=== PATIENT | male | born 1975 | race Caucasian/White ===

== ENCOUNTER 2019-03-12 21:07 | Inpatient (IN) | payer MEDICAID ==
[~2019-03-12] VITALS: Ht 165.1 cm; Wt 94.3 kg
[2019-03-12 21:20] VITALS: Ht 165.1 cm; Wt 94.3 kg
--- NOTE | 2019-03-12 21:47 | NUR ---
DR. LOPEZ AT BEDSIDE WITH MSE
--- NOTE | 2019-03-12 21:57 | NUR ---
LAB AND X RAY AT BEDSIDE
--- NOTE | 2019-03-12 22:03 | NUR ---
MEDICATED PER DR ORDER, PT. TOLERATED WELL, SEE EMAR
[2019-03-12 22:09] LABS: BASOPHIL % 0.4 % (0-2); PLATELET COUNT 210 x10^3mcL (130-400); RED CELL DISTRIBUTION WIDTH 14.3 % (11.5-14.5)
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
[2019-03-12 22:15] LABS: CALCIUM 8.8 mg/dL (8.5-10.1); CARBON DIOXIDE 27.2 mmol/L (21-32); CHLORIDE SERUM 105 mmol/L (98-107); GFR1 > 60 mL/min; GLUCOSE SERUM 126 mg/dL (74-106); POTASSIUM SERUM 4.3 mmol/L (3.5-5.1); SODIUM SERUM 140 mmol/L (136-145)
[2019-03-12 22:20] LABS: ALKALINE PHOSPHATASE 67 U/L (46-116); ALT/SGPT 36 U/L (16-63); AST/SGOT 30 U/L (15-37); BILIRUBIN TOTAL 0.7 mg/dL (0.20-1.00); TOTAL PROTEIN, SERUM 7.1 g/dL (6.4-8.2)
[2019-03-13] VITALS (9 sets, daily range): BP systolic 149–191; BP diastolic 88–116
[2019-03-13 00:17] LABS: microscopic required? YES; urine erythrocyte TRACE (NEGATIVE)
[2019-03-13] MEDS ORDERED: LABETALOL HCL100 MG PO (00:20)
[2019-03-13] MEDS ORDERED: ZESTRIL20 MG PO (00:21)
[2019-03-13] MEDS ORDERED: HYDRALAZINE HCL50 MG PO (00:22)
[2019-03-13] MEDS ORDERED: LIPITOR40 MG PO (00:23)
[2019-03-13 00:27] LABS: AMPHETAMINE QUAL UR NONE DETECTED (See below)
--- NOTE | 2019-03-13 00:27 | NUR ---
REPORT PABON TO EBONI RENTERIA RN REPORTED BP 166/106, OK TO SEND UP
--- NOTE | 2019-03-13 01:20 | NUR ---
RECEIVED PT FROM ER, PT ADMIT FOR CHEST PAIN, HYPERTENSIVE EMERGENCY, PT IS A/O X4, VERBAL RESPONSIVE. SLOW SPEECH, LUNG SOUND CLEAR BIALTERAL, C/O DRY COUGH, SOB. PIOR TO ER. PT IS ON 2L/MIN O2 VIA NC, PO2 97%, PT IS ON TELE 15, NSR, DENY ANY CHESET PAIN OR DISCOMFORT, BOWEL SOUND PRESENT ALL 4 QUADRANTS, NO DISTENTION, NO TENDER. PEDAL PULSE PRESENT BOTH FEET, NO EDEMA, ALL 4 EXTREMITIES ARE EQUAL STREIGHT. NO WEAKNESS NOTED. IV AT LEFT HAND, NO LEAKING, NO INFILTRATION. ALL ADLS ASSIST, ALL NEED MET, CALL LIGHT IN REACH, WILL CONTINUE TO MONITOR.
--- NOTE | 2019-03-13 01:45 | NUR ---
B/P READING SHOWS 191/116, MAP 138. CATAPRESS 0.1MG PO GIVEN ORDERED. PT DENIES PAIN OR ANY DISCOMFORT AT THIS TIME. SR ON THE MONITOR. RESP. EVEN AND UNLABORED. ON ROOM AIR, SAT. 99%. NO ACUTE DISTRESS NOTED. CALL LIGHT WITHIN REACH. WILL CONTINUE TO MONITOR.
[2019-03-13 02:41] LABS: CHOLESTEROL/HDL RATIO 3.9
--- NOTE | 2019-03-13 02:58 | NUR ---
B/P READING RECHECK SHOWS 156/95. MAP 118.02 SAT.SHOWS 98% ON ROOM AIR, NO ACUTE DISTRESS NOTED.
--- NOTE | 2019-03-13 03:02 | NUR ---
RESTING QUIETLY IN BED WITH EYES CLOSED, APPEARS ASLEEP, EASILY AROUSABLE. RESP. EVEN AND UNLABORED. NO ACUTE DISTRESS NOTED. WILL CONTINUE TO MONITOR.
--- NOTE | 2019-03-13 06:13 | NUR ---
AFEBRILE AND VITAL SIGNS STABLE.RESP. EVEN AND UNLABORED. SR ON THE MONITOR, DENIES CP OR ANY DISCOMFORT AT THIS TIME. SLEPT WELL. NO COMPLAINTS NOTED. VOIDING FREELY. AMBULATES TO THE BATHROOM WITH STEADY GAIT. WILL CONTINUE TO MONITOR.
[2019-03-13 06:55] LABS: BASOPHIL % 0.5 % (0-2); PLATELET COUNT 203 x10^3mcL (130-400); RED CELL DISTRIBUTION WIDTH 14.4 % (11.5-14.5)
[2019-03-13 07:15] LABS: CALCIUM 8.5 mg/dL (8.5-10.1); CARBON DIOXIDE 29.5 mmol/L (21-32); CHLORIDE SERUM 105 mmol/L (98-107); CREATININE SERUM 1.1 mg/dL (0.7-1.3); GFR1 > 60 mL/min; GLUCOSE SERUM 105 mg/dL (74-106); MAGNESIUM 1.9 mg/dL (1.8-2.4); PHOSPHOROUS 3.3 mg/dL (2.5-4.9); SODIUM SERUM 141 mmol/L (136-145)
--- NOTE | 2019-03-13 07:46 | NUR ---
AAO TIMES 4. TELE # 15 SR. LUNGS CTA. NO SOB. O2 SAT ON 1L NC 99%. BS'S ACTIVE TIMES 4. SPENCER STRONG. IV SITE CDI LEFT HAND. PERIPHERAL PULSES PALPABLE. NO EDEMA. NO C/O DISCOMFORT.
--- NOTE | 2019-03-13 15:11 | NUR ---
ECHOCARDIOGRAM COMPLETED.
--- NOTE | 2019-03-13 18:15 | NUR ---
AAO TIMES 4. TELE # 15 SR. NO C/O PAIN. NO SOB. COOPERTIVE. WATCHING TV ON HIS PHONE. IV SITE CDI. AMBULATORY.
--- NOTE | 2019-03-13 19:30 | NUR ---
PT IS A/O x4. SLOW, SOFT SPEECH. ON TELE #15, NSR. DENIES ANY CHEST PAIN OR PRESSURE. PULSES ARE PRESENT. NO EDEMA NOTED. LUNGS CLEAR IN ALL OLIVERSO. ON RA, DENIES ANY SOB. EQAUL CHEST RISE AND FALL. NO SIGN OF RESP DISTRESS. BOWEL SOUNDS ARE PRESENT x4. DENIES ANY ABD PAIN OR DISTRESS. SKIN WARM AND INTACT. DENIES ANY PAIN AT THIS TIME. SALINE LOCKED ON LH INTACT AND PATENT. BED IS AT LOWEST SETTING. CALL LIGHT WITHIN REACH. WILL CONTINUE TO MONTIOR.
--- NOTE | 2019-03-13 22:17 | NUR ---
B/P WAS RECHECKED AND INCREASED TO 170/72. CATAPRES WAS GIVEN PER EMAR. WILL RECHECK B/P.
--- NOTE | 2019-03-13 23:42 | NUR ---
RECHECKED B/P AFTER PRN CATAPRESS. B/P IS NOW 159/99. HR 97. PT DENIES ANY CHEST PAIN OR PRESSURE. CHARGE NURSE INFORMED. WILL CONTINUE TO MONITOR.
--- NOTE | 2019-03-14 00:33 | NUR ---
PT IS RESTING IN BED WITH BOTH EYES CLOSED. BREATHING EVEN AND UNLABORED. NO SIGN OF RESP DISTRESS. BED IS AT LOWEST SETTING. CALL LIGHT WITHIN REACH. WILL CONTINUE TO MONITOR.
[2019-03-14 05:04] VITALS: BP 155/87
--- NOTE | 2019-03-14 06:43 | NUR ---
PT IS RESTING IN BED. DENIES ANY CHEST PAIN OR PRESSURE. NO ACUTE EVENT OCCURED AT NIGHT. BED IS AT LOWEST SETTING. CALL LIGHT WITHIN REACH. WILL ENDORSE TO AM NURSE.
--- NOTE | 2019-03-14 07:15 | NUR ---
RECEIVED PT IN BED. AWAKE, AOX4, VERBALLY RESPONSIVE. NO C/O CP/SOB. PT ON TELE #15, NSR. LUNG SOUNDS CTA. IV SL NOTED ON LH. PT AMBULATORY. CALL LIGHT WITHIN REACH. EDUCATED PT TO CALL FOR ANY DISCOMFORT.
[2019-03-14 09:56] VITALS: BP 155/103
--- NOTE | 2019-03-14 10:44 | NUR ---
I HAVE REVIEWED THE DATA COLLECTION BY JULIETTE POLO (NAME):MICHELLE RUBY RN ENTERED ON (DATE/TIME):03/14/19 AT 1045 I CONCUR WITH THE DATA AND ANY EXCEPTIONS OR COMMENTS ARE LISTED BELOW:
[2019-03-14 11:29] VITALS: BP 143/99
[2019-03-14 12:44] VITALS: BP 147/96
--- NOTE | 2019-03-14 14:42 | NUR ---
INFORMED DR COY OF PT'S LOW SERUM K AT 3.0 OF 03/13/19. ORDERED TO DRAW BMP TODAY, WILL F/U ON RESULT.
[2019-03-14 15:28] LABS: CALCIUM 8.9 mg/dL (8.5-10.1); CHLORIDE SERUM 106 mmol/L (98-107); CREATININE SERUM 1.1 mg/dL (0.7-1.3); GFR1 > 60 mL/min; GLUCOSE SERUM 136 mg/dL (74-106); POTASSIUM SERUM 3.3 mmol/L (3.5-5.1); SODIUM SERUM 143 mmol/L (136-145)
--- NOTE | 2019-03-14 15:45 | NUR ---
K REDRAWN TODAY, STILL LOW AT 3.3. DR COY NOTIFIED, ORDERED KLOR-CON 20 MEQ ONCE TODAY.
[2019-03-14 15:57] VITALS: BP 147/97
[2019-03-14] MEDS ORDERED: CLA10 PO (15:57)
[2019-03-14] MEDS ORDERED: APR25 PO (15:57)
[2019-03-14] MEDS ORDERED: CAT0.1 PO (15:57)
[2019-03-14] MEDS ORDERED: TRA100 PO (15:58)
[2019-03-14] MEDS ORDERED: NIT0.4 SL (15:58)
[2019-03-14] MEDS ORDERED: COZ50 PO (15:58)
[2019-03-14] MEDS ORDERED: ECO81 PO (15:59)
[2019-03-14] MEDS ORDERED: KLOR-CON M2020 MEQ PO (16:00)
[2019-03-14] MEDS ORDERED: PEP20 PO (16:02)
--- NOTE | 2019-03-14 16:21 | NUR ---
PER PT IS CLEARED FOR DISCHARGE.
[2019-03-14 16:24] VITALS: BP 147/97
--- NOTE | 2019-03-14 17:10 | NUR ---
PT D/C TO HOME. AOX4. IV DISCONTINUED. TELEMONITOR 15 RETURNED. PT GIVEN D/C INSTRUCTIONS, VERBALIZED UNDERSTANDING. PT NOW AWAITING FAMILY FOR INSPECTOR SUBASSEMBLY.
--- NOTE | 2019-03-14 17:31 | NUR ---
PER PT, FAMILY COMING AT 8PM TO PICK HIM UP.
== END 2019-03-14 17:42 | disposition home health service (06) | DRG 203 ==
LOC: ED 21:07 → DU 23:27
PROVIDERS: Emergency Medicine; ADMIT Family Medicine
DX: M94.0 Chondrocostal junction syndrome [Tietze] (principal); E78.5 Hyperlipidemia, unspecified; I16.0 Hypertensive urgency; E87.6 Hypokalemia; R05 Cough; R73.03 Prediabetes; Z86.73 Personal history of transient ischemic attack (TIA), and cerebral infarction without residual deficits; Z68.34 Body mass index [BMI] 34.0-34.9, adult
CPT/HCPCS: 83880; 87804; 90658; 90732; G0378; J3490; Q0092